=== PATIENT | male | born 2005 | race Two or more races ===

== ENCOUNTER 2024-02-06 08:14 | Emergency (ER) | payer OTHER ==
[~2024-02-06] VITALS: Ht 180.3 cm; Wt 90.7 kg
[2024-02-06 08:41] VITALS: BP 121/73; O2SAT 99
== END 2024-02-06 10:27 | disposition home or self-care (01) ==
LOC: EMR PED 08:16 → ER 08:16 → EMR PED 08:53
DX: S90.02XA Contusion of left ankle, initial encounter (principal); X58.XXXA Exposure to other specified factors, initial encounter; Y93.39 Activity, other involving climbing, rappelling and jumping off; Y92.832 Beach as the place of occurrence of the external cause; Y99.9 Unspecified external cause status